=== PATIENT | male | born 1970 | race Caucasian/White ===

== ENCOUNTER → 2023-08-18 16:16 | Outpatient (REF) | payer OTHER, SELFPAY | LOC: HWRAD 16:16 | PROVIDERS: ATTENDING PHYSICIAN Family Medicine | DX: M25.552 Pain in left hip (principal) | CPT/HCPCS: 73502 ==

== ENCOUNTER 2024-07-31 14:29 | Emergency (ER) | payer OTHER, SELFPAY ==
[2024-07-31 14:47] VITALS: BP 141/96
--- NOTE | 2024-07-31 15:37 | ED.GENMED ---
History of Present Illness
<Dao Epstein PA-C - Last Filed: 07/31/24 18:34>
General
Chief Complaint: Skin Surface Trauma
Source: patient
Time Seen by Provider: 07/31/24 15:11
History of Present Illness
History of Present Illness:
53-year-old male with past medical history of hypertension and GERD presenting the ER after he was hit with a pressurized pipe on the right ear sustaining a through and through laceration to the superiormost portion of his ear. Unknown last
tetanus, no other injuries were sustained, no headache, no LOC, no anticoagulants.
Past History
<RIVAS Deal Last Filed: 07/31/24 18:34>
Past History
ED Past Medical History: GERD, HTN and Hypercholesterolemia
ED Past Surgical History: None
Social History
Tobacco: Non-smoker
Alcohol: Daily
Drug: None
Personal:
Living: with family
Employment: Employed
Review of Systems
<RIVAS Deal Last Filed: 07/31/24 18:34>
Review of Systems
All Other Systems: ROS reviewed and negative except as documented in HPI and ROS
Phy Exam
<RIVAS Deal Last Filed: 07/31/24 18:34>
Physical Exam
Physical Exam:
GENERAL: Alert , in no apparent distress
EYE: conjunctiva clear
Head: Approximately 2-1/2 cm through and through laceration of the right auricle, bleeding under control with pressure
NECK: Supple,
ENT: mmm.
LUNGS: no acute respiratory distress
NEUROLOGICAL: Alert and oriented
SKIN: Warm and dry, skin intact.
MUSCULOSKELETAL: well perfused.
PSYCH: Normal and appropriate interaction.
Scores
<Dao Epstein PA-C - Last Filed: 07/31/24 18:34>
Heart Failure Risk
Heart Failure Risk Score: Not Applicable
Heart Score for Chest Pain Patients
STEMI patient?: Not applicable
Withdrawal Assessment of Alcohol
Withdrawal Assessment Completed?: Not applicable
Course
<Dao Epstein PA-C - Last Filed: 07/31/24 18:34>
Orders/Labs/Results
Orders:
Orders
07/31/24 15:22
Tetanus/Diphth/Acelpertussis [Adacel] 0.5 ml IM .ONCE ONE
07/31/24 18:03
Cephalexin Monohydrate [Keflex] 500 mg PO NOW STA
Vital Signs
Initial and Last Documented VS:
Initial Vital Signs
Temp Pulse Resp BP Pulse Ox
98.2 F 97 20 141/96 97
07/31/24 14:47 07/31/24 14:47 07/31/24 14:47 07/31/24 14:47 07/31/24 14:47
Last Documented Vital Signs
Temp Pulse Resp BP Pulse Ox
98.2 F 97 20 141/96 97
07/31/24 14:47 07/31/24 14:47 07/31/24 14:47 07/31/24 14:47 07/31/24 14:47
<Colten Dawson DO - Last Filed: 07/31/24 16:21>
Orders/Labs/Results
Orders:
Orders
07/31/24 15:22
Tetanus/Diphth/Acelpertussis [Adacel] 0.5 ml IM .ONCE ONE
07/31/24 18:03
Cephalexin Monohydrate [Keflex] 500 mg PO NOW STA
Vital Signs
Initial and Last Documented VS:
Initial Vital Signs
Temp Pulse Resp BP Pulse Ox
98.2 F 97 20 141/96 97
07/31/24 14:47 07/31/24 14:47 07/31/24 14:47 07/31/24 14:47 07/31/24 14:47
Last Documented Vital Signs
Temp Pulse Resp BP Pulse Ox
98.2 F 97 20 141/96 97
07/31/24 14:47 07/31/24 14:47 07/31/24 14:47 07/31/24 14:47 07/31/24 14:47
<Dao Epstein PA-C - Last Filed: 07/31/24 18:34>
MDM/Problems Addressed
Differential Diagnosis Includes:
Complex laceration, concussion, intracranial bleeding
MDM/Problems Addressed:
53-year-old male presented the ER for evaluation of complex laceration to the right ear. Notification was sent to on-call plastic surgeon via [facility] text, Dr. Gamboa, who will come to the ER to repair the wound. Will update patient's tetanus.
<Dao Epstein PA-C - Last Filed: 07/31/24 18:34>
*Pulse Oximetry
Patient hypoxic: no
*Critical Care Note
Total Time (30-74mins, 75-104mins- exclusive of procedures): Not Applicable
<Dao Epstein PA-C - Last Filed: 07/31/24 18:34>
Patient Management
Escalation/DeEscalation of care consider admission/obs:
Stable for discharge home following laceration repair by plastic surgery. Short-term course of Keflex sent to patient's pharmacy. He will follow-up outpatient with Dr. Gamboa.
ED Attending Note
<Dao Epstein PA-C - Last Filed: 07/31/24 18:34>
-
Portions of this chart may have been created with voice recognition software.� Occasional wrong word or��sound alike� substitutions may have occurred due to the inherent limitations of voice recognition software.
<Colten Dawson DO - Last Filed: 07/31/24 16:21>
ED Attending Note
Patient seen and examined by attending physician: Yes
I performed the substantive portion of visit, reviewed & personally made and approve the management plan that is documented in note by myself or GUERO.: Yes
ED Attending Note:
I have seen and evaluated the patient with a [id number] encounter. I have spoken to the advance practicer provider and involved in the medical history, the physical exam, medical decision making.
Evaluation and management service: agree unless noted differently below.
Results interpretation: agree unless noted differently below.
Focused HPI: 53-year-old male presenting with laceration to his right ear. Patient was in a crawl space and a pipe fell from the ceiling and cut the right top ear.
Physical exam: Complex laceration to the right ear involving cartilage
Medical Decision Making: I did discuss with patient and at bedside that I am happy to suture the ear. They are requesting plastic surgery. Will have plastic surgery evaluate
Discharge Plan
Departure
Patient Disposition: Home (Routine Discharge)
Date of Disposition: 07/31/24
Time of Disposition: 17:51
Patient with high blood pressure during this ER visit?: Yes
Discharge Problem:
Complex laceration of right ear
Instructions: Wound Care (DC)
Prescriptions:
New
cephalexin 500 mg tablet
500 mg PO BID 7 Days Qty: 14 0RF
No Action
montelukast 10 MG tablet
10 mg PO HS
zolpidem [Ambien CR] 6.25 MG tablet,ext release multiphase
6.25 mg PO HS
colchicine 0.6 MG tablet
0.6 mg PO BID Qty: 180 0RF
Rx Instructions:
take twice a day for 3 months then STOP.
valsartan-hydrochlorothiazide 320 MG/12.5 MG tablet
1 tab PO DAILY Qty: 90 3RF
ibuprofen 200 MG tablet
200 mg PO DIRECTED Qty: 1 0RF
Rx Instructions:
600mg (3 tablets) twice a day for 4 days, then 200mg (1 tablet) twice a day for 5 days, then 200mg daily for 4 days, then STOP.
omeprazole magnesium [Prilosec OTC] 20 MG tablet,delayed release (DR/EC)
20 mg PO DAILY Qty: 0 0RF
Rx Instructions:
Please continue daily while on new medications
Referrals:
Blayne Avendano MD [Family Provider, Family Practice]
Reed Gamboa DO [Active, Plastic Surgery]
Interventions
Interventions:
*Risk Screen - Suicide Last Done: 07/31/24 14:47
*General Assessment Last Done: 07/31/24 14:47
*Neglect/Abuse Screening Last Done: 07/31/24 14:47
*ED- Fall Risk Assessment Last Done: 07/31/24 16:01
*ED COVID-19 Vaccine History Last Done: 07/31/24 16:01
ED-Skin Assessment Last Done: 07/31/24 16:01
Discharge Date and Time
Print Language: BELARUSIAN
[2024-07-31] MEDS: ADACEL 0.5 ML IM (15:50)
[2024-07-31] MEDS: KEFLEX 500 MG PO (18:14)
== END 2024-07-31 18:14 | disposition home or self-care (01) ==
LOC: EMR 14:29
PROVIDERS: EMERGENCY PHYSICIAN Student in an Organized Health Care Education/Training Program; FAMILY PHYSICIAN Family Medicine; OTHER PHYSICIAN Otolaryngology
DX: S01.311A Laceration without foreign body of right ear, initial encounter (principal); W22.8XXA Striking against or struck by other objects, initial encounter; E78.00 Pure hypercholesterolemia, unspecified; I10 Essential (primary) hypertension; Z23 Encounter for immunization
CPT/HCPCS: 13151; 90471; 99283; 90715